=== PATIENT | female | born 1990 | race African-American/Black ===

== ENCOUNTER 2017-03-25 20:08 | Emergency (ER) | payer MEDICARE ==
[~2017-03-25] VITALS: Ht 162.6 cm; Wt 176.9 kg
[2017-03-25] MEDS ORDERED: HYDROCODONE/APAP 10MG-325MG TAB PO ONE (21:45)
[2017-03-25] MEDS ORDERED: TYLENOL WITH C1 EACH PO (21:49)
[2017-03-25] MEDS ORDERED: PENICILLIN V P500 MG PO (21:49)
== END 2017-03-25 22:57 | disposition home or self-care (01) ==
LOC: ER 20:08
DX: K08.9 Disorder of teeth and supporting structures, unspecified (principal); K02.9 Dental caries, unspecified; Z33.1 Pregnant state, incidental
CPT/HCPCS: 99282